=== PATIENT | male | born 1930 | race Caucasian/White ===

== ENCOUNTER 2016-05-15 13:27 | Emergency (ER) | payer MEDICARE ==
[2016-05-15] MEDS ORDERED: NS 0.9% 1000 ML* 2,000 ML IV ONE (14:10)
[2016-05-15 14:18] VITALS: BP 129/50
--- NOTE | 2016-05-15 14:49 | RAD ---
INDICATION: Shortness of breath, cough, possible aspiration pneumonia. COMPARISON: Comparison is made with a prior chest x-ray study from May 27, 2015. TECHNIQUE: A portable view of the chest was obtained. FINDINGS: Cardiac and mediastinal contours appear to be within normal limits. There is a round area of increased density which projects overlying the left costophrenic angle and left lung base. This may be external to the patient although a true pulmonary mass cannot be excluded. Recommend PA and lateral chest films for further evaluation. IMPRESSION: FOCAL AREA OF INCREASED DENSITY AT THE LEFT LUNG BASE POSSIBLY EXTERNAL TO THE PATIENT VERSUS A PULMONARY MASS. RECOMMEND PA AND LATERAL CHEST FILMS FOR FURTHER EVALUATION.
[2016-05-15 15:14] LABS: Hematocrit 31 % (42-52); Hemoglobin 10.3 g/dl (14.0-18.0); Mean Corpuscular HGB Conc 33 g/dl (31-36); Mean Corpuscular Hemoglobin 32 pg (27-31); Mean Corpuscular Volume 97 fL (80-94); Mean Platelet Volume 7 um3 (7.4-10.4); Red Blood Count 3.23 10^6/ul (4.0-5.4); Red Cell Distribution Width 13 % (10.5-15); White Blood Count 6.2 10^3/ul (3.5-10.8)
[2016-05-15 15:35] LABS: ALT 5 U/L (7-52); AST 26 U/L (13-39); Albumin 3.4 g/dL (3.2-5.2); Alkaline Phosphatase 62 U/L (34-104); Anion Gap 1 mmol/L (2-11); BUN/Creatinine Ratio 21.4 (8-20); Blood Urea Nitrogen 25 mg/dL (6-24); C Reactive Protein < 1.00 mg/L (< 5.00); CO2 Carbon Dioxide 28 mmol/L (22-32); Calcium 8.9 mg/dL (8.6-10.3); Chloride 104 mmol/L (101-111); EGFR Non-African American 59.1 (>60); Globulin 2.7 g/dL (2-4); Glucose 123 mg/dL (70-100); Potassium 4.7 mmol/L (3.5-5.0); Sodium 133 mmol/L (133-145); Total Protein 6.1 g/dL (6.4-8.9)
--- NOTE | 2016-05-15 17:43 | ED ---
David Moreno Adam, scribed for Malachi Roach MD on 05/15/16 at 1400 . Neurological HPI - HPI Summary HPI Summary: Pt is an 85 year old male BIBA from [place] for increased shaking and apparent respiratory distress. Upon examination in the ED he is completely nonverbal. According to the EMR, he has a PMHx of dementia, Parkinson's, depression, BPH, NM (prior to age 49), stent placement, HTN, GERD, appy, and back surgery. - History of Current Complaint Stated Complaint: RESP DISTRESS Time Seen by Provider: 05/15/16 13:49 Hx Obtained From: EMS, Medical Records Hx From Patient Unobtainable Due To: Altered Mental Status - Level 5 Caveat - patient is nonverbal Timing: Constant Onset Severity: Moderate Current Severity: Moderate Character: Impaired Speech, Responsiveness Aggravating: Unknown Alleviating: Nothing - Allergy/Home Medications Allergies/Adverse Reactions: Allergies Allergy/AdvReac Type Severity Reaction Status Date / Time Esomeprazole [From Nexium] Allergy Unknown Unknown Verified 05/27/15 19:16 Reaction Details Lansoprazole [From Prevacid] Allergy Unknown Unknown Verified 05/27/15 19:16 Reaction Details Meloxicam [From Mobic] Allergy Unknown Unknown Verified 05/27/15 19:16 Reaction Details Morphine Allergy Unknown Unknown Verified 05/27/15 19:16 Reaction Details Nitrofurantoin Allergy Unknown Unknown Verified 05/27/15 19:16 [From Macrodantin] Reaction Details Sertraline [From Zoloft] Allergy Unknown Unknown Verified 05/27/15 19:16 Reaction Details Simvastatin [From Zocor] Allergy Unknown Unknown Verified 05/27/15 19:16 Reaction Details Sulfa Drugs Allergy Unknown Unknown Verified 05/27/15 19:16 Reaction Details PMH/Surg Hx/FS Hx/Imm Hx Endocrine/Hematology History: Reports: Hx Anticoagulant Therapy Denies: Hx Diabetes, Hx Thyroid Disease Cardiovascular History: Reports: Hx Hypercholesterolemia, Hx Hypertension, Other Cardiovascular Problems/Disorders - PT.STATTES MINOR HEART PROB. CANNOT SAY WHAT ON NO MEDS Denies: Hx Pacemaker/ICD Respiratory History: Denies: Hx Asthma, Hx Chronic Obstructive Pulmonary Disease (COPD) GI History: Reports: Hx Gastroesophageal Reflux Disease History: Reports: Hx Benign Prostatic Hyperplasia, Other Problems/ Disorders - UTI'S Denies: Hx Renal Disease Musculoskeletal History: Reports: Other Musculoskeletal History - CONTRACTURES/ WHEELCHAIR BOUND Sensory History: Denies: Hx Hearing Aid Neurological History: Reports: Hx Dementia, Other Neuro Impairments/Disorders - PARKINSON'S Denies: Hx Seizures Psychiatric History: Reports: Hx Depression Denies: Hx Panic Disorder, Hx Substance Abuse - Surgical History Surgery Procedure, Year, and Place: CARDIAC STENT OVER 20 YRS AGO, ANGIOPLASTY Hx Anesthesia Reactions: No Infectious Disease History: Denies: Hx Hepatitis, Hx Human Immunodeficiency Virus (HIV), Traveled Outside the [place] in Last 30 Days - Family History Known Family History: Positive: Unknown - Level 5 Caveat - patient is nonverbal - Social History Occupation: Retired Lives: At [facility] Alcohol Use: None Hx Substance Use: No Substance Use Type: Reports: None Hx Tobacco Use: No Smoking Status (MU): Never Smoked Tobacco Review of Systems - ROS Summary Review of Systems Summary: Level 5 Caveat - patient is nonverbal Positive: Shortness Of Breath Positive: Other - Tremors All Other Systems Reviewed And Are Negative: No Physical Exam - Summary Physical Exam Summary: The patient is nonverbal. He is well-nourished in no acute distress and in no acute pain. The skin is warm and dry and skin color reflects adequate perfusion. HEENT: The head is normocephalic and atraumatic. The pupils are equal and reactive. The conjunctivae are clear and without drainage. Nares are patent and without drainage. Mouth reveals dry mucous membranes and the throat is without erythema and exudate. The external ears are intact. Cerumen in both ears. Neck is supple with full range of motion and non-tender. There are no carotid bruits. There is no neck vein distension. Respiratory: Intercostal retractions. Rales in bases of lungs. Cardiovascular: Holosystolic murmur in left intercostal space. Abdomen: The abdomen is soft and non-tender. There are normal bowel sounds heard in all four quadrants and there is no organomegaly palpated. Musculoskeletal: There is no back pain noted. Extremities are non-tender with full range of motion. There is 2 second capillary refill. There is no peripheral edema or calf tenderness elicited. Neurological: Patient is nonverbal. He is shaking in a contractured position. Psychiatric: The patient is nonverbal. Triage Information Reviewed: Yes Vital Signs On Initial Exam: Initial Vitals Temp Pulse Resp BP Pulse Ox 98.7 F 89 30 129/50 98 05/15/16 14:00 05/15/16 14:00 05/15/16 14:00 05/15/16 14:00 05/15/16 14:00 Vital Signs Reviewed: Yes Completion Of Physical Exam Limited Due To: Level 5 - Patient is nonverbal Diagnostics - Vital Signs Vital Signs Temp Pulse Resp BP Pulse Ox 05/15/16 15:00 90 27 97 05/15/16 14:02 82 98 05/15/16 14:00 98.7 F 89 30 129/50 98 - Laboratory Lab Results: Lab Results 05/15/16 05/15/16 05/15/16 Range/Units 14:54 14:54 14:54 WBC 6.2 (3.5-10.8) 10^3/ul RBC 3.23 L (4.0-5.4) 10^6/ul Hgb 10.3 L (14.0-18.0) g/dl Hct 31 L (42-52) % MCV 97 H (80-94) fL MCH 32 H (27-31) pg MCHC 33 (31-36) g/dl RDW 13 (10.5-15) % Plt Count 198 (150-450) 10^3/ul MPV 7 L (7.4-10.4) um3 Neut % (Auto) 72.9 (38-83) % Lymph % (Auto) 15.2 L (25-47) % [place] % (Auto) 8.7 (1-9) % Eos % (Auto) 2.3 (0-6) % Baso % (Auto) 0.9 (0-2) % Absolute Neuts (auto) 4.5 (1.5-7.7) 10^3/ul Absolute Lymphs (auto) 0.9 L (1.0-4.8) 10^3/ul Absolute Monos (auto) 0.5 (0-0.8) 10^3/ul Absolute Eos (auto) 0.1 (0-0.6) 10^3/ul Absolute Basos (auto) 0.1 (0-0.2) 10^3/ul Absolute Nucleated RBC 0 10^3/ul Nucleated RBC % 0.1 INR (Anticoag Therapy) (0.89-1.11) Sodium 133 (133-145) mmol/L Potassium 4.7 (3.5-5.0) mmol/L Chloride 104 (101-111) mmol/L Carbon Dioxide 28 (22-32) mmol/L Anion Gap 1 L (2-11) mmol/L BUN 25 H (6-24) mg/dL Creatinine 1.17 (0.67-1.17) mg/dL Est GFR ( Amer) 76.0 (>60) Est GFR (Non-Af Amer) 59.1 (>60) BUN/Creatinine Ratio 21.4 H (8-20) Glucose 123 H (70-100) mg/dL Lactic Acid 1.0 (0.5-2.0) mmol/L Calcium 8.9 (8.6-10.3) mg/dL Total Bilirubin 0.40 (0.2-1.0) mg/dL AST 26 (13-39) U/L ALT 5 L (7-52) U/L Alkaline Phosphatase 62 (34-104) U/L Troponin I 0.00 (<0.04) ng/mL C-Reactive Protein < 1.00 (< 5.00) mg/L B-Natriuretic Peptide ( - 100) pg/mL Total Protein 6.1 L (6.4-8.9) g/dL Albumin 3.4 (3.2-5.2) g/dL Globulin 2.7 (2-4) g/dL Albumin/Globulin Ratio 1.3 (1-3) 05/15/16 05/15/16 Range/Units 14:54 14:54 WBC (3.5-10.8) 10^3/ul RBC (4.0-5.4) 10^6/ul Hgb (14.0-18.0) g/dl Hct (42-52) % MCV (80-94) fL MCH (27-31) pg MCHC (31-36) g/dl RDW (10.5-15) % Plt Count (150-450) 10^3/ul MPV (7.4-10.4) um3 Neut % (Auto) (38-83) % Lymph % (Auto) (25-47) % [place] % (Auto) (1-9) % Eos % (Auto) (0-6) % Baso % (Auto) (0-2) % Absolute Neuts (auto) (1.5-7.7) 10^3/ul Absolute Lymphs (auto) (1.0-4.8) 10^3/ul Absolute Monos (auto) (0-0.8) 10^3/ul Absolute Eos (auto) (0-0.6) 10^3/ul Absolute Basos (auto) (0-0.2) 10^3/ul Absolute Nucleated RBC 10^3/ul Nucleated RBC % INR (Anticoag Therapy) 0.94 (0.89-1.11) Sodium (133-145) mmol/L Potassium (3.5-5.0) mmol/L Chloride (101-111) mmol/L Carbon Dioxide (22-32) mmol/L Anion Gap (2-11) mmol/L BUN (6-24) mg/dL Creatinine (0.67-1.17) mg/dL Est GFR ( Amer) (>60) Est GFR (Non-Af Amer) (>60) BUN/Creatinine Ratio (8-20) Glucose (70-100) mg/dL Lactic Acid (0.5-2.0) mmol/L Calcium (8.6-10.3) mg/dL Total Bilirubin (0.2-1.0) mg/dL AST (13-39) U/L ALT (7-52) U/L Alkaline Phosphatase (34-104) U/L Troponin I (<0.04) ng/mL C-Reactive Protein (< 5.00) mg/L B-Natriuretic Peptide 51 ( - 100) pg/mL Total Protein (6.4-8.9) g/dL Albumin (3.2-5.2) g/dL Globulin (2-4) g/dL Albumin/Globulin Ratio (1-3) Result Diagrams: 05/15/16 14:54 05/15/16 14:54 Lab Statement: Any lab studies that have been ordered have been reviewed, and results considered in the medical decision making process. - Radiology CXR Radiology Interpretation Completed By: Radiologist - IMPRESSION: FOCAL AREA OF INCREASED DENSITY AT THE LEFT LUNG BASE POSSIBLY EXTERNAL TO THE PATIENT VERSUS A PULMONARY MASS. RECOMMEND PA AND LATERAL CHEST FILMS FOR FURTHER EVALUATION. - EKG 15:58 Cardiac Rate: NL - Significant artifact EKG Rhythm: Sinus Rhythm EKG Interpretation: No STEMI, normal axis Re-Evaluation - Re-Evaluation First Eval Re-Evaluation Time: 16:38 Change: Unchanged Comment: Discussed imaging and lab values with patient. Lungs are clear. Course/Dx - Course Course Of Treatment: Concern for aspiration pneumonia. He will be discharged home on Clindamycin - Differential Dx Differential Diagnoses Neuro: Positive: Other - ams, aspiration pneumonia - Diagnoses Provider Diagnoses: Aspiration pneumonia Discharge - Discharge Plan Condition: Stable Disposition: HOME Prescriptions: Clindamycin CAP* [Cleocin 150 MG CAP*] 300 mg PO TID #30 cap Patient Education Materials: Clindamycin (By mouth), Aspiration Pneumonia (GEN) Referrals: Supa Doherty MD [Primary Care Provider] - 2 Days The documentation as recorded by the David zhu Adam accurately reflects the service I personally performed and the decisions made by me, Malachi Roach MD.
== END 2016-05-15 17:07 | disposition home or self-care (01) ==
LOC: ED 13:27
DX: J69.0 Pneumonitis due to inhalation of food and vomit (principal); R06.02 Shortness of breath; F03.90 Unspecified dementia, unspecified severity, without behavioral disturbance, psychotic disturbance, mood disturbance, and anxiety; Z86.79 Personal history of other diseases of the circulatory system; Z87.19 Personal history of other diseases of the digestive system
CPT/HCPCS: 36415; 71010; 80053; 83605; 83880; 84484; 85025; 85610; 86140; 87040; 93005; 99283